=== PATIENT | female | born 1990 | race Caucasian/White ===

== ENCOUNTER 2017-12-14 01:57 | Inpatient (IN) | payer BC ==
[2017-12-14] MEDS ORDERED: OXYTOCIN 10 UNIT/ML 1 ML VIAL IM PRN (03:28)
[2017-12-14] MEDS ORDERED: LIDOCAINE 1% (PF) 10 MG/ML (30 ML SDV) SQ PRN (03:28)
[2017-12-14] MEDS ORDERED: METHYLERGONOVINE 0.2 MG/ML 1 ML AMP IM PRN (03:28)
[2017-12-14] MEDS ORDERED: CARBOPROST TROMETHAMINE 250 MCG/ML 1 ML AMP IM PRN (03:28)
[2017-12-14] MEDS ORDERED: TERBUTALINE 1 MG/ML VIAL SQ PRN (03:28)
[2017-12-14] MEDS ORDERED: BUTORPHANOL 1 MG/ML 1 ML VIAL IV PRN (03:30)
[2017-12-14 04:05] VITALS: BMI 38.0
[2017-12-14] MEDS: LACTATED RINGERS 1,000 ML IV SCH ×3 (04:07→07:17)
[2017-12-14] MEDS ORDERED: fentaNYL (PF) 50 MCG/ML 5 ML AMP ONE (05:07)
[2017-12-14] MEDS ORDERED: SODIUM CHLORIDE 0.9% 100 ML BAG ONE (05:07)
[2017-12-14] MEDS ORDERED: BUPIVACAINE (PF) 0.25% 30 ML VIAL ONE (05:07)
[2017-12-14] MEDS ORDERED: BUPIVACAINE (PF) 0.25% 25 ML, fentaNYL (PF) 200 MCG in SODIUM CHLORIDE 0.9% 71 ML EPIDURAL ONE (05:32)
[2017-12-14 05:37] LABS: Basophils % (A) 0 %; Eosinophils # (A) 0.1 k/uL (0-0.7); Eosinophils % (A) 1 %; HCT 40.4 % (34.0-46.0); HGB 13.3 gm/dL (11.4-16.0); Lymphocytes # (A) 1.7 k/uL (1.0-4.8); Lymphocytes % (A) 10 %; MCH 30.1 pg (25.0-35.0); MCV 91.3 fL (80.0-100.0); Mean Platelet Volume 7.3; Monocytes # (A) 0.5 k/uL (0-1.0); Monocytes % (A) 3 %; Neutrophils # (A) 13.8 k/uL (1.3-7.7); Neutrophils % (A) 85 %; Platelet Count 290 k/uL (150-450); RBC 4.43 m/uL (3.80-5.40); RDW 12.7 % (11.5-15.5); WBC 16.2 k/uL (3.8-10.6)
--- NOTE | 2017-12-14 08:45 | P.HPOB ---
History of Present Illness H&P Date: 12/14/17 This is a 27-year-old white female 1 para 0 EDC 01/01/2018 at 38-6/7 weeks' gestation. Patient presents to labor and delivery with strong regular uterine contractions, in early spontaneous labor. She denied fluid leakage or vaginal bleeding. She was seen in the office yesterday and noted to be 1 cm dilated. Past surgical history is negative. Past medical history is significant for exercise-induced asthma. Current medications vitamins daily. ALLERGIES none known. Family history significant for hypertension. Social history patient is , she has never been a smoker, she denies alcohol or drug use. history significant for blood type A positive, rubella status immune. VDRL testing, urine culture, gonorrhea and chlamydia cultures, HIV testing, hepatitis B surface antigen, group B strep cultures all negative. One-hour Glucola 73. On exam this is a pleasant white female, 5 foot 3 inches, 215 pounds, vital signs are stable and patient is afebrile. The general physical exam is within normal limits. Spontaneous amniorrhexis occurred for very thin meconium- stained fluid at 0700 hrs. Cervix is 6 cm dilated, -2 station, 90% effaced, vertex presentation. heart tones consistent with reactive NST. Impression: 38-6/7 weeks intrauterine , active spontaneous labor, thin meconium-stained fluid, epidural already in place per patient request. Plan: Close maternal and surveillance. Anticipate normal spontaneous vaginal delivery. Review of Systems As in HPI. Past Medical History Past Medical History: No Reported History, Asthma History of Any Multi-Drug Resistant Organisms: None Reported Past Surgical History: No Surgical Hx Reported Additional Past Surgical History / Comment(s): wisdom teeth out approx 2013 Past Anesthesia/Blood Transfusion Reactions: Unable to Obtain Additional Past Anesthesia/Blood Transfusion Reaction / Comment(s): no previous blood transfusion Past Psychological History: Unable to Obtain Smoking Status: Never smoker Past Alcohol Use History: Occasional Additional Past Alcohol Use History / Comment(s): no use while Past Drug Use History: None Reported - Past Family History Father Family Medical History: No Reported History Medications and Allergies Home Medications Medication Instructions Recorded Confirmed Type Pnv,Calcium 72/Iron/Folic Acid 1 tab PO DAILY 12/14/17 12/14/17 History [ Plus Tablet] Allergies Allergy/AdvReac Type Severity Reaction Status Date / Time No Known Allergies Allergy Verified 12/14/17 02:02 Exam - Vital Signs Vital signs: Vital Signs Temp Pulse Resp BP 12/14/17 03:42 98.6 F 67 20 128/86 12/14/17 03:23 97.0 F L 74 20 134/89 12/14/17 02:17 97.0 F L 74 18 134/89 Intake and Output 12/13/17 12/14/17 12/14/17 22:59 06:59 14:59 Other: # Voids 1 Weight 97.522 kg See dictation under HPI. Results Result Diagrams: 12/14/17 05:26 Abnormal Lab Results - Last 24 Hours (Table) 12/14/17 Range/Units 05:26 WBC 16.2 H (3.8-10.6) k/uL Neutrophils # 13.8 H (1.3-7.7) k/uL Assessment and Plan Plan: Continue close maternal and surveillance. Anticipate normal spontaneous vaginal delivery. Time with Patient: Less than 30
[2017-12-14] MEDS: OXYTOCIN 20 UNITS/1000 ML NS 1,000 ML IV SCH (08:52)
--- NOTE | 2017-12-14 10:26 | P.PROBDLV ---
Vaginal Delivery Note - . Vaginal Delivery Note: This is a 27-year-old white female 1 para 0 EDC 01/01/2018 at 38-6/7 weeks' gestation. Patient presented to the unit earlier today in active spontaneous labor. is essentially unremarkable, rubella status immune , blood type A positive, group B strep cultures negative. Spontaneous amniorrhexis revealed thin meconium-stained fluid at approximately 0700 hrs. Please see my dictated history and physical for details. Patient requested an epidural and this was placed without difficulty. Oxytocin augmentation was also given. She progressed well through the first stage of labor and was judged to be completely dilated at 0951 hours. She began the second stage of labor at that time. The perineal body was prepped and draped in usual sterile fashion. Excellent maternal expulsive efforts were maintained. Ultimately the head delivered occiput anterior and restituted accordingly. The oropharynx, nasopharynx, and external nares were bulb suctioned on the perineum. Patient was officially delivered of a liveborn female infant at 1007 hours. The umbilical cord was noted to be wrapped around the right lower extremity 2. The umbilical cord was doubly clamped and ligated , she was handed to waiting nurses for evaluation where scores of 8 and 9 at one and 5 minutes respectively were given. The placenta delivered spontaneously, it was inspected and noted to be intact with trivascular cord, meconium-stained, and a peripheral cord insertion at approximately 1009 hours. Perineal body was then redraped. Inspection of the cervix, vagina, perineum, periurethral, and perirectal areas revealed a small first-degree perineal laceration at 6:00. This was repaired in the usual fashion using 3-0 Vicryl suture. Infant weighs 2715 g or 6 lbs. 0 oz. The fundus is firm and in the midline, symmetric and 18 week size upon completion of delivery. Total estimated blood loss 350 mL's.
[2017-12-14] MEDS ORDERED: ACETAMINOPHEN TAB 325 MG TAB PO PRN (10:28)
[2017-12-14] MEDS ORDERED: HYDROcodone/APAP 5-325MG 1 EACH TAB PO PRN (10:28)
[2017-12-14] MEDS ORDERED: IBUPROFEN 600 MG TAB PO PRN (10:28)
[2017-12-14] MEDS ORDERED: LANOLIN CREAM 5 GM TUBE TOPICAL PRN (10:28)
[2017-12-14] MEDS ORDERED: BENZOCAINE/MENTHOL SPRAY 1 GM/SPRAY AEROSOL TOPICAL PRN (10:28)
[2017-12-14] MEDS ORDERED: HYDROCORTISONE 2.5% RECTAL CREAM 30 GM TUBE RECTAL PRN (10:28)
[2017-12-14] MEDS ORDERED: diphenhydrAMINE 50 MG CAP PO PRN (10:28)
[2017-12-14] MEDS ORDERED: diphenhydrAMINE 25 MG CAP PO PRN (10:28)
[2017-12-14] MEDS ORDERED: SIMETHICONE 80 MG CHEWABLE PO PRN (10:28)
[2017-12-14] MEDS ORDERED: ZOLPIDEM 5 MG TAB PO PRN (10:28)
[2017-12-14] MEDS ORDERED: WITCH HAZEL 1 EACH MED..PAD TOPICAL PRN (10:28)
[2017-12-14] MEDS ORDERED: diphenhydrAMINE 50 MG/ML 1 ML VIAL IVP PRN ×2 (10:28)
[2017-12-14 22:35] VITALS: RESP 16
[2017-12-14] MEDS: SENNOSIDES-DOCUSATE SODIUM 1 EACH TAB PO SCH (22:41)
[2017-12-15] MEDS: OXYTOCIN 20 UNITS/1000 ML NS 1,000 ML IV SCH (04:16)
[2017-12-15] MEDS: LACTATED RINGERS 1,000 ML IV SCH (04:16)
[2017-12-15] MEDS: SENNOSIDES-DOCUSATE SODIUM 1 EACH TAB PO SCH (08:03)
--- NOTE | 2017-12-15 08:06 | P.DS ---
Providers Date of admission: 12/14/17 03:26 Expected date of discharge: 12/15/17 Attending physician: Gregoria Brennan Primary care physician: Stated None Hospital Course: This is a 27-year-old white female 1 para 0 EDC 12/22/2017 at 38-6/7 weeks' gestation. Patient presented in active spontaneous labor with strong regular uterine contractions. Her was unremarkable, group B strep cultures negative, blood type A positive, rubella status immune. Please see my dictated history and physical for details. Patient had light meconium-stained fluid upon spontaneous amniorrhexis. Epidural was placed per her request. She went on to deliver a liveborn female with scores of 8 and 9 at one and 5 minutes respectively. Infant weighed 2715 g or 6 lbs. 0 oz. There was an estimated blood loss recorded of 350 mL and a small first-degree perineal laceration easily repaired. Please see my dictated delivery note for details. This morning the patient is doing well. She is voiding, ambulating, passing flatus without difficulty. Vital signs are stable and she is afebrile. Fundus is firm and in the midline, symmetric and 18 week size. Extremities are negative for edema. Breasts are not engorged. Breast-feeding is going well. [place] infant is also doing well. Patient is therefore being discharged home in good condition. She will follow- up with me in the office in 6 weeks. I reminded her no intercourse, tampons or douching. She will use [id number] ibuprofen products as needed for pain, 200 mg pills, 3 every 6 hours as needed. She will continue taking her vitamin daily. I have given her prescription for a double electric breast pump to be used as needed. I've asked her to call me with any fevers shakes or chills, foul smelling or copious lochia, with the passage of large blood clots, with any pain not alleviated by [id number] products, or indeed with any concerns. We have briefly discussed options for contraception and we will discuss this further in the office. Patient Condition at Discharge: Good Plan - Discharge Summary New Discharge Prescriptions: No Action Pnv,Calcium 72/Iron/Folic Acid [ Plus Tablet] 1 tab PO DAILY Discharge Medication List Pnv,Calcium 72/Iron/Folic Acid [ Plus Tablet] 1 tab PO DAILY 12/14/17 [ History] Follow up Appointment(s)/Referral(s): Gregoria Brennan MD [STAFF PHYSICIAN] - 6 Weeks Discharge Disposition: HOME SELF-CARE
[2017-12-15 08:55] LABS: Basophils % (A) 0 %; Eosinophils # (A) 0.2 k/uL (0-0.7); Eosinophils % (A) 1 %; HCT 36.7 % (34.0-46.0); HGB 12.3 gm/dL (11.4-16.0); Lymphocytes # (A) 2.4 k/uL (1.0-4.8); Lymphocytes % (A) 16 %; MCH 30.7 pg (25.0-35.0); MCHC 33.5 g/dL (31.0-37.0); MCV 91.8 fL (80.0-100.0); Mean Platelet Volume 7.7; Monocytes # (A) 0.7 k/uL (0-1.0); Monocytes % (A) 4 %; Neutrophils # (A) 11.9 k/uL (1.3-7.7); Neutrophils % (A) 78 %; Platelet Count 259 k/uL (150-450); RDW 12.6 % (11.5-15.5); WBC 15.4 k/uL (3.8-10.6)
[2017-12-15 08:59] VITALS: BP 123/73; PULSE 87; TEMP 97.9
== END 2017-12-15 13:45 | disposition home or self-care (01) | DRG 775 ==
LOC: FBPOP 01:57 → 4FBP 03:26
PROVIDERS: ADMIT Obstetrics & Gynecology; ATTEND Obstetrics & Gynecology
PROC: 3E0R3NZ Introduction of Analgesics, Hypnotics, Sedatives into Spinal Canal, Percutaneous Approach (ICD-10-PCS; principal; 2017-12-14)
PROC: 10E0XZZ Delivery of Products of Conception, External Approach (ICD-10-PCS; principal; 2017-12-14)
PROC: 0HQ9XZZ Repair Perineum Skin, External Approach (ICD-10-PCS; principal; 2017-12-14)
PROC: 00HU33Z Insertion of Infusion Device into Spinal Canal, Percutaneous Approach (ICD-10-PCS; principal; 2017-12-14)
DX: O70.0 First degree perineal laceration during delivery (principal); Z37.0 Single live birth; O77.0 Labor and delivery complicated by meconium in amniotic fluid; Z3A.38 38 weeks gestation of pregnancy
CPT/HCPCS: 59025; 85025; 88307; 99213

== ENCOUNTER → 2020-05-20 | Outpatient (CLI) | payer BC | END | disposition home or self-care (01) | LOC: LABWHC1 09:04 | PROVIDERS: ATTEND Obstetrics & Gynecology | DX: Z36.9 Encounter for antenatal screening, unspecified (principal) | CPT/HCPCS: 36415; 82950 ==

== ENCOUNTER → 2020-08-01 | Outpatient (CLI) | payer BC | END | disposition home or self-care (01) | LOC: LABWHC1 11:05 | PROVIDERS: ATTEND Obstetrics & Gynecology | DX: Z03.818 Encounter for observation for suspected exposure to other biological agents ruled out (principal) | CPT/HCPCS: 87636; C9803 ==

== ENCOUNTER 2020-09-05 16:07 | Inpatient (IN) | payer BC ==
[2020-09-05] MEDS ORDERED: TERBUTALINE 1 MG/ML VIAL SQ PRN (18:07)
[2020-09-05] MEDS ORDERED: METHYLERGONOVINE 0.2 MG/ML 1 ML AMP IM PRN (18:07)
[2020-09-05] MEDS ORDERED: LIDOCAINE 0.5% (PF) 5 MG/ML (50 ML SDV) SQ PRN (18:07)
[2020-09-05] MEDS ORDERED: CARBOPROST TROMETHAMINE 250 MCG/ML 1 ML AMP IM PRN (18:07)
[2020-09-05] MEDS ORDERED: OXYTOCIN 10 UNIT/ML 1 ML VIAL IM PRN (18:07)
[2020-09-05 18:46] LABS: Basophils # (A) 0.1 k/uL (0-0.2); Basophils % (A) 1 %; Eosinophils # (A) 0.2 k/uL (0-0.7); Eosinophils % (A) 2 %; HCT 38.7 % (34.0-46.0); HGB 13.3 gm/dL (11.4-16.0); Lymphocytes # (A) 2.3 k/uL (1.0-4.8); Lymphocytes % (A) 17 %; MCH 30.5 pg (25.0-35.0); MCHC 34.4 g/dL (31.0-37.0); MCV 88.5 fL (80.0-100.0); Mean Platelet Volume 7.9; Monocytes # (A) 0.5 k/uL (0-1.0); Monocytes % (A) 4 %; Neutrophils # (A) 10.1 k/uL (1.3-7.7); Neutrophils % (A) 75 %; Platelet Count 336 k/uL (150-450); RBC 4.37 m/uL (3.80-5.40); RDW 13.7 % (11.5-15.5); WBC 13.4 k/uL (3.8-10.6)
[2020-09-05] MEDS: LACTATED RINGERS 1,000 ML IV SCH ×2 (18:51→19:46)
[2020-09-05] MEDS ORDERED: SODIUM CHLORIDE 0.9% 100 ML BAG ONE (18:56)
[2020-09-05] MEDS ORDERED: fentaNYL (PF) 50 MCG/ML 5 ML AMP ONE (18:56)
[2020-09-05] MEDS ORDERED: ROPIVACAINE 5MG/ML 20ML VIAL ONE (18:56)
[2020-09-05] MEDS ORDERED: OXYTOCIN 30 UNITS/500 ML NS 30 UNIT in SALINE 1 500ML.BAG IV SCH ×2 (21:00→23:45)
--- NOTE | 2020-09-05 21:32 | P.HPOB ---
History of Present Illness H&P Date: 09/05/20 Chief Complaint: Labor at 40 and one sevenths weeks gestation This is a 30-year-old 2 para 1001 woman with an estimated due date of 09/04/2020 who is admitted at 40 and one sevenths weeks gestation with spontaneous onset of labor. She reports worsening contractions throughout the day. She presented to labor and delivery triage at approximately 4 PM. She is linh and was 3+ centimeters dilated. Well being observed in triage she did progress to 4+ centimeters with uterine contractions every 2-4 minutes. She was therefore admitted. She did have spontaneous rupture of clear fluids well and observation. Her has been complicated by positive covert 19 testing approximately 4 weeks ago. She is a history of childhood asthma. This has been uncomplicated however recent imaging at 39 weeks provides estimated weight of 4035 g, plus or -680 g. This is approximately 8 lbs. 14 oz. And as the 91st percentile. LANDRY was 17 cm. Obstetric history: 38 week normal spontaneous vaginal delivery 2018 of a 6 lbs. 0 oz. female . Laboratory data: Blood type A positive, antibody screen negative, rubella immune, VDRL nonreactive, hepatitis B surface antigen negative, HIV negative, gonorrhea and clinic cultures negative, glucose tolerance testing 1 hour 118, hemoglobin A1c 5.4, group B strep negative. Review of Systems All systems: negative Past Medical History Past Medical History: No Reported History, Asthma History of Any Multi-Drug Resistant Organisms: None Reported Past Surgical History: No Surgical Hx Reported Additional Past Surgical History / Comment(s): wisdom teeth out approx 2013 Past Anesthesia/Blood Transfusion Reactions: Unable to Obtain Additional Past Anesthesia/Blood Transfusion Reaction / Comment(s): no previous blood transfusion Past Psychological History: Unable to Obtain Smoking Status: Never smoker Past Alcohol Use History: Occasional Additional Past Alcohol Use History / Comment(s): no use while Past Drug Use History: None Reported - Past Family History Father Family Medical History: No Reported History Medications and Allergies Home Medications Medication Instructions Recorded Confirmed Type Pnv,Calcium 72/Iron/Folic Acid 1 tab PO DAILY 12/14/17 09/05/20 History [ Plus Tablet] Allergies Allergy/AdvReac Type Severity Reaction Status Date / Time No Known Allergies Allergy Verified 12/14/17 02:02 Exam Vital Signs Temp Pulse Resp BP Pulse Ox 09/05/20 18:31 96 F L 82 16 117/84 100 09/05/20 18:06 96 F L 82 16 117/84 100 Intake and Output 09/05/20 09/05/20 09/05/20 06:59 14:59 22:59 Other: Weight 105.233 kg Upon my initial evaluation the patient is resting comfortably with an epidural anesthetic in place. Dmitri's evaluation reveals the size larger than anticipated dates at the fundal height of approximately 45 cm. Estimated weight based on Dmitri's is 9+ pounds. On pelvic examination the cervix is 6-7 cm dilated, 90% effaced vertex in the -3 station with caput formation. Contractions are irregular every 2-5 minutes. heart tones are category 1. Results Result Diagrams: 09/05/20 18:42 Abnormal Lab Results - Last 24 Hours (Table) 09/05/20 Range/Units 18:42 WBC 13.4 H (3.8-10.6) k/uL Neutrophils # 10.1 H (1.3-7.7) k/uL Assessment and Plan (1) 40 weeks gestation of Current Visit: Yes Status: Acute Code(s): Z3A.40 - 40 WEEKS GESTATION OF SNOMED Code(s): 46634289 (2) Spontaneous onset of labor Current Visit: Yes Status: Acute Code(s): FUG8051 - SNOMED Code(s): 41212621 (3) Spontaneous rupture of membranes Current Visit: Yes Status: Acute Code(s): UFY4753 - SNOMED Code(s): 702416273 (4) LGA (large for gestational age) fetus Current Visit: Yes Status: Acute Code(s): HQQ7624 - SNOMED Code(s): 528425713 Plan: This is a 30-year-old 2 para 1001 woman presenting at 40 and one seventh s weeks gestation in spontaneous active labor with obvious LGA. She is counseled based on the Dmitri's this is a greater than 9 pound is not 10 pound . Her previous vaginal delivery was of a 6 lbs. 0 oz. . Recent ultrasound estimated weight in the 91st percentile. Monitor labor curve closely. status is currently reassuring with category 1 heart tones. Pitocin has been initiated for irregular contraction pattern.
[2020-09-05] MEDS ORDERED: diphenhydrAMINE 50 MG/ML 1 ML VIAL IVP PRN ×2 (23:32)
[2020-09-05] MEDS ORDERED: SIMETHICONE 80 MG CHEWABLE PO PRN (23:32)
[2020-09-05] MEDS ORDERED: LANOLIN CREAM 5 GM TUBE TOPICAL PRN (23:32)
[2020-09-05] MEDS ORDERED: BENZOCAINE/MENTHOL SPRAY 1 GM/SPRAY AEROSOL TOPICAL PRN (23:32)
[2020-09-05] MEDS ORDERED: diphenhydrAMINE 25 MG CAP PO PRN (23:32)
[2020-09-05] MEDS ORDERED: diphenhydrAMINE 50 MG CAP PO PRN (23:32)
[2020-09-05] MEDS ORDERED: HYDROCORTISONE 2.5% RECTAL CREAM 30 GM TUBE RECTAL PRN (23:32)
[2020-09-05] MEDS ORDERED: ZOLPIDEM 5 MG TAB PO PRN (23:32)
--- NOTE | 2020-09-05 23:32 | P.PROBDLV ---
Vaginal Delivery Note - . Vaginal Delivery Note: Findings: male in the left occiput anterior position with Apgars of 9 at 1 minute and 9 at 5 minutes weighing 8 pounds 7.8 ounces, 3850 g. Second-degree midline episiotomy. Intact, three-vessel cord placenta. Moderate shoulder dystocia encountered. Delivery summary: This is a 30 year old 2 para 1001 woman with an estimated due date of 40 and one sevenths weeks gestation who was admitted in spontaneous active labor. At admission she was approximate 4 cm dilated at approximately 5:30 PM. She had spontaneous rupture at 1810 of clear amniotic fluid. She received an epidural anesthetic and progressed to complete cervical dilation with minimal Pitocin augmentation by approximately 2245. She commenced pushing with excellent maternal effort. Estimated weight was approximately 9-9-1/2 pounds by Dmitri and previous ultrasound. Preparation for possible shoulder dystocia was made. Additional personnel were prepared in the room and briefed on anticipated dystocia. When the patient was the perineum was infused with lidocaine and a midline episiotomy was cut. The patient was then placed in complete Ole position. When the head delivered there was an immediate turtle sign. The anterior shoulder was more accessible and therefore was internally rotated with gentle downward traction under the pubic bone in a clockwise direction. The patient was then instructed to push. With continued internal rotation of the anterior shoulder the shoulder did deliver from underneath the pubic symphysis. With additional maternal effort and gentle upward traction under the axilla of both the anterior and posterior arms facilitated delivery of the infant's abdomen and the rest of the onto the field. Time of dystocia was less than 30 seconds. The infant's nose and mouth were bulb suctioned and the uterus was placed on the maternal abdomen. The cord was clamped and cut.APGARS 9 at 1 minute and 9 at 5 minutes. was noted to be vigorously moving all 4 extremities. The perineum was inspected and a second-degree laceration without extension was noted. This was infused with lidocaine and repaired with 3-0 Vicryl suture in the usual fashion. After an approximately 8 minute third stage of labor an intact, three-vessel cord placenta was expressed. The uterus was massaged and was noted to be firm at the level of the umbilicus. Pitocin was infused intravenously after the third stage. The perineum, vagina and cervix were all reinspected and no further lacerations were noted. All counts were correct. Both mother and infant were doing well post delivery in the room.
[2020-09-06] MEDS: ACETAMINOPHEN TAB 325 MG TAB PO PRN ×2 (02:42→12:32)
[2020-09-06] MEDS: SENNOSIDES-DOCUSATE SODIUM 1 EACH TAB PO SCH ×2 (08:57→21:56)
[2020-09-06 09:28] LABS: Basophils % (A) 0 %; Eosinophils % (A) 0 %; HCT 32.8 % (34.0-46.0); HGB 11.1 gm/dL (11.4-16.0); Lymphocytes # (A) 2.1 k/uL (1.0-4.8); Lymphocytes % (A) 14 %; MCH 30.3 pg (25.0-35.0); MCHC 33.7 g/dL (31.0-37.0); MCV 89.9 fL (80.0-100.0); Mean Platelet Volume 7.9; Monocytes # (A) 0.7 k/uL (0-1.0); Monocytes % (A) 5 %; Neutrophils # (A) 12.5 k/uL (1.3-7.7); Neutrophils % (A) 80 %; Platelet Count 258 k/uL (150-450); RBC 3.65 m/uL (3.80-5.40); RDW 13.8 % (11.5-15.5); WBC 15.5 k/uL (3.8-10.6)
--- NOTE | 2020-09-06 09:33 | P.PNOBGVD ---
Subjective - Subjective Principal diagnosis: PPD 1 Interval history: Patient is doing well . She is ambulating and voiding without difficulty. She states her lochia is moderate. She states her pain is well- controlled. She is breast-feeding without difficulty. Patient reports: Reports appetite normal, Reports voiding normally, Reports pain well controlled, Reports ambulating normally : doing well, nursing well Objective - Latest Vital Signs Latest vital signs: Vital Signs Temp Pulse Resp BP Pulse Ox 09/06/20 04:00 98.4 F 82 20 127/81 09/06/20 01:28 86 20 143/70 09/06/20 00:58 98.0 F 94 20 164/73 09/06/20 00:28 86 20 144/67 09/06/20 00:13 86 20 144/76 09/05/20 23:58 97.9 F 97 20 142/74 09/05/20 23:41 100 20 140/73 09/05/20 23:29 98.0 F 98 20 142/93 09/05/20 18:31 96 F L 82 16 117/84 100 09/05/20 18:06 96 F L 82 16 117/84 100 Intake and Output 09/05/20 09/06/20 09/06/20 22:59 06:59 14:59 Intake Total 1300 1140 Output Total 100 750 Balance 1200 390 Intake: IV 1300 500 Oral 640 Output: Urine 100 600 Estimated Blood Loss 150 Other: Weight 105.233 kg - Exam Extremities: Present: normal, edema Abdomen: Present: soft Uterus: Present: normal, firm - Labs Labs: Abnormal Lab Results - Last 24 Hours (Table) 09/05/20 09/06/20 Range/Units 18:42 09:00 WBC 13.4 H 15.5 H (3.8-10.6) k/uL RBC 3.65 L (3.80-5.40) m/uL Hgb 11.1 L (11.4-16.0) gm/dL Hct 32.8 L (34.0-46.0) % Neutrophils # 10.1 H 12.5 H (1.3-7.7) k/uL Assessment and Plan (1) Status post normal vaginal delivery Current Visit: Yes Status: Acute Code(s): [id number] - SNOMED Code(s): 903208987 (2) 40 weeks gestation of Current Visit: Yes Status: Acute Code(s): Z3A.40 - 40 WEEKS GESTATION OF SNOMED Code(s): 59784660 (3) LGA (large for gestational age) fetus Current Visit: Yes Status: Acute Code(s): NME3595 - SNOMED Code(s): 628559209 (4) Spontaneous onset of labor Current Visit: Yes Status: Acute Code(s): CGK1546 - SNOMED Code(s): 09420623 (5) Spontaneous rupture of membranes Current Visit: Yes Status: Acute Code(s): ULS2953 - SNOMED Code(s): 378806478 Plan: This 30-year-old G2 now P2 status post normal spontaneous vaginal delivery is doing well this morning. We'll plan to continue routine care and anticipate discharge home in the morning.
[2020-09-06] MEDS: IBUPROFEN 600 MG TAB PO PRN (19:02)
[2020-09-07 08:55] VITALS: BP 136/83; PULSE 91; RESP 15; TEMP 98
[2020-09-07] MEDS: SENNOSIDES-DOCUSATE SODIUM 1 EACH TAB PO SCH (10:45)
--- NOTE | 2020-09-07 11:01 | P.DS ---
Providers Date of admission: 09/05/20 18:30 Expected date of discharge: 09/07/20 Attending physician: Hilda Melo Primary care physician: Stated None - Discharge Diagnosis(es) (1) Status post normal vaginal delivery Current Visit: Yes Status: Acute Hospital Course: The patient is a 30-year-old 2 para 1001 admitted at 40 and one sevenths weeks by good dating parameters in labor. Her was complicated by contraction of Covid 19 approximately 1 month prior to presentation. She was found with suspected macrosomia the late third trimester ultrasound. Group B strep status was negative. On labor and delivery, she had an epidural catheter placed for analgesia and made good progress to complete. She thereafter pushed to a normal spontaneous vaginal delivery of a viable 8 lbs. 8 oz. baby boy with Apgars of 9 at 1 minute and 9 at 5 minutes. Her course has been unremarkable with vital signs remaining stable and her temperature was afebrile throughout. She was deemed stable for discharge on day #2 was discharged home to follow-up in the office in 6 weeks' time routinely. Discharge instructions included calling for any significantly increased bleeding or foul-smelling lochia, significantly increased fever abdominal pain, perineal complaints, breast complaints, or anything also concerned her. She was additionally instructed to have nothing in the vagina for at least 6 weeks time to include intercourse. She understood her instructions and agrees to follow up as noted above. Discharge medications included continued vitamins as she has opted to breast-feed. She was otherwise to use [id number] analgesic pain medications as needed. Maternal blood type is A+ and rubella status is immune. Procedures: #1. Epidural analgesia #2. Normal spontaneous vaginal delivery with mild shoulder dystocia Patient Condition at Discharge: Stable Plan - Discharge Summary New Discharge Prescriptions: No Action Pnv,Calcium 72/Iron/Folic Acid [ Plus Tablet] 1 tab PO DAILY Discharge Medication List Pnv,Calcium 72/Iron/Folic Acid [ Plus Tablet] 1 tab PO DAILY 12/14/17 [History] Follow up Appointment(s)/Referral(s): Hilda Melo MD [STAFF PHYSICIAN] - 6 Weeks Discharge Disposition: HOME SELF-CARE
[2020-09-07] MEDS: IBUPROFEN 600 MG TAB PO PRN (11:32)
== END 2020-09-07 12:15 | disposition home or self-care (01) | DRG 807 ==
LOC: FBPOP 16:07 → 4FBP 18:30
PROVIDERS: ADMIT Obstetrics & Gynecology; ATTEND Obstetrics & Gynecology
PROC: 3E0R3NZ Introduction of Analgesics, Hypnotics, Sedatives into Spinal Canal, Percutaneous Approach (ICD-10-PCS; principal; 2020-09-05)
PROC: 10E0XZZ Delivery of Products of Conception, External Approach (ICD-10-PCS; principal; 2020-09-05)
PROC: 0KQM0ZZ Repair Perineum Muscle, Open Approach (ICD-10-PCS; principal; 2020-09-05)
PROC: 0W8NXZZ Division of Female Perineum, External Approach (ICD-10-PCS; principal; 2020-09-05)
PROC: 00HU33Z Insertion of Infusion Device into Spinal Canal, Percutaneous Approach (ICD-10-PCS; principal; 2020-09-05)
DX: O36.63X0 Maternal care for excessive fetal growth, third trimester, not applicable or unspecified (principal); Z37.0 Single live birth; O66.0 Obstructed labor due to shoulder dystocia; O70.1 Second degree perineal laceration during delivery; Z3A.40 40 weeks gestation of pregnancy; Z87.09 Personal history of other diseases of the respiratory system; Z86.16 Personal history of COVID-19
CPT/HCPCS: 59025; 85025; 86850; 86900; 86901; 99213